=== PATIENT | male | born 1960 | race Hispanic/Latino ===

== ENCOUNTER 2020-01-15 07:49 | Outpatient (CLI) | payer MEDICAID, OTHER ==
[2020-01-15 11:31] LABS: Hemoglobin 15.2 g/dL (14.0-18.0); Mean Corpuscular HGB CONC 33.2 g/dL (32.0-36.0); Mean Corpuscular Hemoglobin 32.3 pg (27.0-31.0); Mean Corpuscular Volume 97.4 fL (78.0-98.0); Mean Platelet Volume 7.6 fL (7.4-10.4); Platelet Count 190 thou/uL (130-400); RBC Distribution Width 12.2 % (11.5-14.5); Red Blood Cell (RBC) Count 4.71 mill/uL (4.70-6.10); White Blood Cell (WBC) Count 4.5 thou/uL (4.8-10.8)
[2020-01-15 11:34] LABS: Prothrombin Time 13.3 sec (12.0-14.7)
[2020-01-15 11:35] LABS: PTT 29.4 sec (22.9-36.1)
[2020-01-15 11:44] LABS: Bacteria/HPF None Seen HPF (None Seen); Bilirubin Negative (Negative); Blood, Urine Negative (Negative); Clarity Clear (Clear); Glucose, Urine (Dipstick) Normal (Negative); Ketone, Urine Negative (Negative); Leukocyte Negative Leu/uL (Negative); Nitrite Negative (Negative); Protein, Urine (Dipstick) Negative (Neg-Trace); RBC/HPF 0-3 HPF (0-3); Specific Gravity, Urine 1.026 (1.002-1.036); Squamous Epithelial None Seen HPF (0-3); Urobilinogen Normal mg/dL (Less than 2); WBC/HPF 0-3 HPF (0-3); pH, Urine 5.5 (5.0-9.0)
[2020-01-15 12:01] LABS: Anion Gap 16 mmol/L (10-20); BUN (Urea Nitrogen) 19 mg/dL (8.4-25.7); Calc. Creatinine Clearance 0 mL/min (70-130); Carbon Dioxide 22 mmol/L (22-29); Chloride 106 mmol/L (98-107); Estimated GFR-MDRD 72; Glucose 94 mg/dL (70-105); Potassium 4.7 mmol/L (3.5-5.1); Sodium 139 mmol/L (136-145)
[2020-01-15 17:07] LABS: SARS-CoV-2 MS2 Positive; SARS-CoV-2 N Gene Negative; SARS-CoV-2 S Gene Negative; SARS-CoV-2 by NAA Not Detected (NotDetected); SARS-CoV-2 orf1ab Negative
[2020-01-16 08:16] LABS: Total PSA 2.8 ng/mL (0.0-4.0)
--- NOTE | 2020-01-18 12:02 | EKG ---
Test Reason : PREOP Blood Pressure : / mmHG Vent. Rate : 054 BPM Atrial Rate : 054 BPM P-R Int : 148 ms QRS Dur : 090 ms QT Int : 448 ms P-R-T Axes : 068 062 035 degrees QTc Int : 424 ms Sinus bradycardia Otherwise normal ECG When compared with ECG of 15-JAN-2020 10:11, (Unconfirmed) Previous ECG has undetermined rhythm, needs review Confirmed by PORFIRIO CURIEL (2) on 01/18/2020 12:01:40 PM Referred By: JESUS Confirmed By:PORFIRIO CURIEL
== END 2020-01-15 07:50 | disposition home or self-care (01) ==
LOC: LABBT 07:49
PROVIDERS: ATTEND Urology
DX: Z01.818 Encounter for other preprocedural examination (principal); N40.1 Benign prostatic hyperplasia with lower urinary tract symptoms; Z20.828 Contact with and (suspected) exposure to other viral communicable diseases
CPT/HCPCS: 80048; 81001; 84153; 84154; 85027; 85610; 85730; 87086; 87635; 93005; 93010; U0003

== ENCOUNTER 2020-01-20 08:25 | Observation (INO) | payer OTHER ==
[2020-01-19 12:18] VITALS: BMI 27.8
[2020-01-20] MEDS ORDERED: Levofloxacin 500 mg/D5W 100 ml Premix Bag ONE (09:40)
[2020-01-20] MEDS ORDERED: Ondansetron HCl/PF 4 MG/2 ML Vial IVP PRN (11:42)
[2020-01-20] MEDS ORDERED: Midazolam HCl 2 mg/2 ml Vial ONE (11:45)
[2020-01-20] MEDS ORDERED: Fentanyl 100 MCG/2 ML VIAL ONE ×3 (11:45→12:35)
--- NOTE | 2020-01-20 12:00 | OP ---
DATE OF PROCEDURE: 01/20/2020 PREOPERATIVE DIAGNOSIS: Enlarged prostate with lower urinary tract symptoms. POSTOPERATIVE DIAGNOSIS: Enlarged prostate with lower urinary tract symptoms. PROCEDURE PERFORMED: Transurethral resection of prostate. ANESTHESIA: General. COMPLICATIONS: None. ESTIMATED BLOOD LOSS: None. SPECIMEN: Prostate chips. DESCRIPTION OF PROCEDURE: After informed consent, the patient was taken to the operating room, transferred to the table under his own power. Anesthesia was established. A time-out was performed showing the correct patient, site, and procedure. Preoperative antibiotics were administered. He was prepped and draped in the lithotomy position. I began by performing a digital rectal exam showing a 30 g prostate, benign, without nodules or induration. The rigid resectoscope was advanced through the urethra noting normal course and caliber of the urethra into the prostate noting large left lobe causing obstruction of the prostatic fossa. He does have a somewhat high bladder neck. The bladder was then entered and systematically examined noting no mucosal abnormalities. I began by resecting the left lobe from the bladder neck back to the distal prostate just proximal to the verumontanum. I then resected the bladder neck and posterior midline aspect from the bladder neck back to the verumontanum. Finally, the right lobe was resected. Meticulous hemostasis was achieved. Prostate chips were removed with the [employer] evacuator. The prostate was then re-examined noting no active bleeding. The bladder was re-examined noting no ureteral injury and no residual prostate chips. The scope was then withdrawn and a 22-[place] 3-way Lou catheter placed with 25 mL instilled in the balloon. This was connected to CBI. The patient was then awoken from anesthesia, transferred back to his hospital bed and taken to PACU in stable condition, where he will discharge home upon recovery. Job ID: [id number]
[2020-01-20] MEDS ORDERED: diphenhydrAMINE 50 MG/ML VIAL ONE ×2 (12:15→12:35)
[2020-01-20] MEDS ORDERED: Dexamethasone 20 MG/5 ML VIAL ONE (12:35)
[2020-01-20] MEDS ORDERED: Ondansetron PF 4 MG/2 ML Vial ONE (12:35)
[2020-01-20] MEDS ORDERED: Rocuronium Bromide 10 MG/ML (10ML VIAL) ONE (12:35)
[2020-01-20] MEDS ORDERED: PROPOFOL 200 MG/20 ML VIAL ONE (12:35)
[2020-01-20] MEDS ORDERED: Glycopyrrolate 0.2 MG/ML 5 ML SYRINGE ONE (12:35)
[2020-01-20] MEDS ORDERED: Zolpidem Tartrate 5 MG TAB PO PRN (13:48)
[2020-01-20] MEDS ORDERED: Ondansetron PF 4 MG/2 ML Vial IVP PRN (13:48)
[2020-01-20] MEDS ORDERED: HYDROcodone/Acetaminophen 5/325 mg Tablet PO PRN (13:48)
[2020-01-20] MEDS ORDERED: Ketorolac Tromethamine 30 MG/ML VIAL IVP PRN (13:48)
[2020-01-20] MEDS ORDERED: diphenhydrAMINE 50 MG/ML VIAL IVP PRN (13:48)
[2020-01-20] MEDS ORDERED: Hyoscyamine Sulfate SL 0.125 mg Tablet SL PRN (13:48)
[2020-01-20] MEDS: Sodium Chloride 0.9% 1,000 ML IV SCH (14:55)
[2020-01-20] MEDS: Docusate 100 MG CAP PO SCH (20:50)
[2020-01-21] MEDS: Sodium Chloride 0.9% 1,000 ML IV SCH ×2 (00:58→12:15)
[2020-01-21] MEDS ORDERED: FLUoxetine HCl 20 MG CAP PO SCH (09:00)
[2020-01-21] MEDS ORDERED: lamoTRIgine 25 MG TAB PO SCH (09:00)
[2020-01-21] MEDS ORDERED: Nebivolol HCl 5 MG TAB PO SCH (09:00)
[2020-01-21] MEDS: Docusate 100 MG CAP PO SCH (09:39)
--- NOTE | 2020-01-21 10:39 | DIS ---
DATE OF ADMISSION: 01/20/2020 DATE OF DISCHARGE: 01/21/2020 DISCHARGE DIAGNOSIS: Lower urinary tract symptoms due to enlarged prostate. PROCEDURES: Bipolar transurethral resection of prostate. HOSPITAL COURSE: The patient underwent an uncomplicated bipolar transurethral resection of the prostate. He was managed with CBI overnight. The following morning, CBI was disconnected with urine remaining clear. He was tolerating diet, having no discomfort, and stable for discharge home at that point. DISCHARGE MEDICATIONS: Resume all home medications. Postop medications include Bactrim, oxybutynin, tramadol, docusate. FOLLOWUP PLAN: Next Sunday void trial. Job ID: [id number]
[2020-01-21 11:38] VITALS: BP 158/82; TEMP 97.7
== END 2020-01-21 12:10 | disposition home or self-care (01) ==
LOC: SDC 08:25 → SURG B 11:02
PROVIDERS: ADMIT Urology; ATTEND Urology
PROC: 0VT08ZZ Resection of Prostate, Via Natural or Artificial Opening Endoscopic (ICD-10-PCS; principal; 2020-01-20)
DX: N40.1 Benign prostatic hyperplasia with lower urinary tract symptoms (principal); R33.8 Other retention of urine; I10 Essential (primary) hypertension; F41.9 Anxiety disorder, unspecified; F32.9 Major depressive disorder, single episode, unspecified; G43.909 Migraine, unspecified, not intractable, without status migrainosus; Z79.899 Other long term (current) drug therapy; Z87.891 Personal history of nicotine dependence
CPT/HCPCS: 88305; 96361; 96374; G0378; J1100; J1200; J1885; J1956; J2250; J2405; J2704; J3010

== ENCOUNTER 2021-02-02 14:18 | Outpatient (CLI) | payer OTHER | END 2021-02-02 14:19 | disposition home or self-care (01) | LOC: BICRAD 14:18 | PROVIDERS: ATTEND Registered Nurse Community Health | DX: R06.02 Shortness of breath (principal) | CPT/HCPCS: 71046 ==

== ENCOUNTER 2021-08-25 11:50 | Outpatient (CLI) | payer OTHER ==
[2021-08-25 14:11] LABS: Hemoglobin 14.1 g/dL (13.5-17.5); Mean Corpuscular HGB CONC 34.4 g/dL (32.0-36.0); Mean Corpuscular Hemoglobin 31.3 pg (27.0-33.0); Mean Corpuscular Volume 90.9 fl (81.2-95.1); Mean Platelet Volume 10.8 fl (7.4-10.4); Platelet Count 177 10x3/uL (150-450); RBC Distribution Width 13.1 % (11.5-14.5); Red Blood Cell (RBC) Count 4.51 10x6/uL (4.32-5.72); White Blood Cell (WBC) Count 5.1 10x3/uL (3.5-10.5)
[2021-08-25 14:13] LABS: Anion Gap 15 mmol/L (10-20); BUN (Urea Nitrogen) 17 mg/dL (8.4-25.7); Calc. Creatinine Clearance 0 mL/min (70-130); Calcium 9.1 mg/dL (7.8-10.44); Carbon Dioxide 25 mmol/L (23-31); Chloride 105 mmol/L (98-107); Glucose 85 mg/dL (80-115); Potassium 4.6 mmol/L (3.5-5.1); Sodium 140 mmol/L (136-145)
[2021-08-25 14:15] LABS: Bilirubin Neg (Negative); Blood, Urine Negative (Negative); Clarity Clear (Clear); Glucose, Urine (Dipstick) Normal (Negative); Ketone, Urine Negative (Negative); Leukocyte Negative (Negative); Nitrite Negative (Negative); Protein, Urine (Dipstick) Negative (Neg-Trace); Specific Gravity, Urine 1.015 (1.002-1.036); Urobilinogen Normal mg/dL (Less than 2)
[2021-08-25 14:31] LABS: Bacteria/HPF None Seen HPF (None Seen); RBC/HPF None Seen HPF (0-3); Squamous Epithelial None Seen HPF (0-3); WBC/HPF 0-3 HPF (0-3)
== END 2021-08-25 11:51 | disposition home or self-care (01) ==
LOC: LABBT 11:50
PROVIDERS: ATTEND Urology
DX: Z01.818 Encounter for other preprocedural examination (principal); N52.9 Male erectile dysfunction, unspecified; Z20.822 Contact with and (suspected) exposure to COVID-19
CPT/HCPCS: 80048; 81001; 85027; 87086; 93005; 93010; U0003; U0005

== ENCOUNTER 2021-11-03 12:53 | Outpatient (CLI) | payer MEDICARE, MEDICAID | END 2021-11-03 12:54 | disposition home or self-care (01) | LOC: LABBT 12:53 | PROVIDERS: ATTEND Internal Medicine Gastroenterology | DX: R13.10 Dysphagia, unspecified (principal); Z20.822 Contact with and (suspected) exposure to COVID-19 | CPT/HCPCS: 87811 ==

== ENCOUNTER 2021-11-08 07:02 | Day surgery (SDC) | payer MEDICARE, MEDICAID ==
[2021-11-04 10:55] VITALS: BMI 27.1
[2021-11-08] MEDS ORDERED: PROPOFOL 200 MG/20 ML VIAL ONE (09:56)
[2021-11-08] MEDS ORDERED: Lidocaine 1% PF 5 ML VIAL ONE (09:56)
== END 2021-11-08 10:55 | disposition home or self-care (01) ==
LOC: SDC 07:02
PROVIDERS: ATTEND Internal Medicine Gastroenterology
PROC: 0DB78ZX Excision of Stomach, Pylorus, Via Natural or Artificial Opening Endoscopic, Diagnostic (ICD-10-PCS; principal; 2021-11-08)
PROC: 0D757ZZ Dilation of Esophagus, Via Natural or Artificial Opening (ICD-10-PCS; 2021-11-08)
DX: K29.70 Gastritis, unspecified, without bleeding (principal); R13.10 Dysphagia, unspecified; F17.290 Nicotine dependence, other tobacco product, uncomplicated; I10 Essential (primary) hypertension; M10.9 Gout, unspecified; R73.03 Prediabetes; Z79.899 Other long term (current) drug therapy
CPT/HCPCS: 88305; J2704

== ENCOUNTER 2021-12-09 19:30 | Outpatient (CLI) | payer MEDICARE, MEDICAID | END 2021-12-09 19:31 | disposition home or self-care (01) | LOC: SLEEPLAB 19:30 | PROVIDERS: ATTEND Otolaryngology Plastic Surgery within the Head & Neck | DX: G47.33 Obstructive sleep apnea (adult) (pediatric) (principal); R53.83 Other fatigue; R06.83 Snoring; R40.0 Somnolence | CPT/HCPCS: 95811 ==

== ENCOUNTER 2022-02-07 06:10 | Day surgery (SDC) | payer MEDICARE, MEDICAID ==
[2022-02-06 12:34] VITALS: BMI 27.1
[2022-02-07] MEDS ORDERED: PROPOFOL 200 MG/20 ML VIAL ONE (08:30)
== END 2022-02-07 09:35 | disposition home or self-care (01) ==
LOC: SDC 06:10
PROVIDERS: ATTEND Internal Medicine Gastroenterology
PROC: 0DBK8ZX Excision of Ascending Colon, Via Natural or Artificial Opening Endoscopic, Diagnostic (ICD-10-PCS; principal; 2022-02-07)
PROC: 0DBL8ZX Excision of Transverse Colon, Via Natural or Artificial Opening Endoscopic, Diagnostic (ICD-10-PCS; 2022-02-07)
DX: Z12.11 Encounter for screening for malignant neoplasm of colon (principal); D12.2 Benign neoplasm of ascending colon; D12.3 Benign neoplasm of transverse colon; K57.30 Diverticulosis of large intestine without perforation or abscess without bleeding; K64.9 Unspecified hemorrhoids; F17.290 Nicotine dependence, other tobacco product, uncomplicated; I10 Essential (primary) hypertension; M10.9 Gout, unspecified; R73.03 Prediabetes
CPT/HCPCS: 88305; J2704

== ENCOUNTER 2023-06-04 09:36 | Outpatient (CLI) | payer MEDICAID, MEDICARE, OTHER ==
[2023-06-04 13:14] LABS: #Eosinphils 0.1 10x3/uL (0.0-0.5); #Monocytes 0.6 10x3/uL (0.0-1.1); #Neutrophils 3.9 10x3/uL (1.5-8.4); %Basophils 0.5 % (0.0-2.0); %Eosinophils 1.4 % (0.0-6.0); %Lymphocytes 26.2 % (18.0-47.0); %Monocytes 9.4 % (0.0-10.0); Hematocrit 39.2 % (38.8-50.0); Hemoglobin 13.4 g/dL (13.5-17.5); Mean Corpuscular HGB CONC 34.2 g/dL (32.0-36.0); Mean Corpuscular Hemoglobin 31.5 pg (27.0-33.0); Mean Platelet Volume 10.6 fl (7.4-10.4); Platelet Count 211 10x3/uL (150-450); RBC Distribution Width 12.4 % (11.5-14.5); Red Blood Cell (RBC) Count 4.26 10x6/uL (4.32-5.72); White Blood Cell (WBC) Count 6.3 10x3/uL (3.5-10.5)
== END 2023-06-04 09:37 | disposition home or self-care (01) ==
LOC: LABBT 09:36
PROVIDERS: ATTEND Orthopaedic Surgery Hand Surgery
DX: Z01.818 Encounter for other preprocedural examination (principal); G56.02 Carpal tunnel syndrome, left upper limb
CPT/HCPCS: 85025; 93005; 93010